=== PATIENT | male | born 1945 | race Asian ===

== ENCOUNTER 2020-05-29 19:50 | Emergency (ER) | payer BC, MEDICARE ==
[~2020-05-29] VITALS: Ht 172.7 cm; Wt 75.0 kg
--- NOTE | 2020-05-29 20:23 | NUR ---
PT BIB EMS FOR SYNCOPLE EPISODE WHILE AT [facility]. PT DENIES HITTING HEAD OR LOC. PT DENIES TAKING BLOOD THINNERS. AFTER PATIENT PASSED OUT, A NURSE BYSTANDER FIGURED HIS SUGAR WAS LOW BECAUSE THE PT IS DIABETIC AND GAVE HIM SOME OJ. BY THE TIME THE PT ARRIVED TO THE ED HE SAYS "I FEEL BACK TO NORMAL". EKG COMPLETE. LABS DRAWN, IV FLUIDS INFUSING. FINGER STICK COMPELTED. PT RESTING IN RNEY. CONNECTED TO MONITORING EQUIPMENT.
[2020-05-29 20:30] LABS: BASOPHILS # (AUTO) 0.01 x10^3/uL (0-0.1); BASOPHILS % (AUTO) 0 % (0-1); EOSINOPHILS # (AUTO) 0.16 x10^3/uL (0-0.4); EOSINOPHILS % (AUTO) 3 % (1-7); LYMPHOCYTES # (AUTO) 0.72 x10^3/uL (1-3.4); LYMPHOCYTES % (AUTO) 15 % (22-44); MD NO; MEAN CORPUSCULAR HEMOGLOBIN 30.8 pg (27.5-34.5); MEAN CORPUSCULAR HGB CONC 32.5 g/dL (33.2-36.2); MEAN CORPUSCULAR VOLUME 94.8 fL (81-97); MONOCYTES # (AUTO) 0.46 x10^3/uL (0.2-0.8); MONOCYTES % (AUTO) 9 % (2-9); NEUTROPHILS # (AUTO) 3.52 x10^3/uL (1.8-6.8); NEUTROPHILS % (AUTO) 72 % (42-75); PLATELET COUNT 169 x10^3/uL (130-400); RED CELL DISTRIBUTION WIDTH 13.8 % (9.4-14.8)
[2020-05-29] MEDS ORDERED: SODIUM CHLORIDE 0.9% 1,000ML IVBOLUS ONE (20:30)
[2020-05-29] MEDS ORDERED: SODIUM CHLORIDE FLUSH 10ML SYR IVF ONE (20:30)
[2020-05-29 20:39] LABS: ALANINE AMINOTRANSFERASE 32 U/L (12-78); ALBUMIN 3.6 g/dL (3.4-5.0); ANION GAP 7 mmol/L (5-15); CALCIUM 8.7 mg/dL (8.5-10.1); CHLORIDE 107 mmol/L (98-107); CREATININE 2.03 mg/dL (0.7-1.3)
[2020-05-29 20:44] LABS: ALKALINE PHOSPHATASE 104 U/L (45-117); BILIRUBIN,TOTAL 0.3 mg/dL (0.2-1.0); TOTAL PROTEIN 6.6 g/dL (6.4-8.2); TROPONIN I < 0.015 ng/mL (0.000-0.045)
--- NOTE | 2020-05-29 20:50 | NUR ---
Orthostatics: Supine- 120/58 Pulse- 76 Sitting- 131/67 Pulse- 80 Standing- 129/63 Pulse- 87
[2020-05-29 20:57] VITALS: BP 129/63
== END 2020-05-29 22:06 | disposition home or self-care (01) ==
LOC: ED 21:20
DX: R55 Syncope and collapse (principal); N28.9 Disorder of kidney and ureter, unspecified; R42 Dizziness and giddiness; E10.9 Type 1 diabetes mellitus without complications; R11.0 Nausea; R94.31 Abnormal electrocardiogram [ECG] [EKG]
CPT/HCPCS: 71045; 80053; 82962; 84484; 85025; 93005; 96360; 99285; J7030